=== PATIENT | female | born 1955 | race Caucasian/White ===

== ENCOUNTER 2021-11-12 12:13 | Inpatient (IN) ==
[2021-11-12] MEDS ORDERED: ONDANSETRON INJ 2 MG/ML 2 ML VIAL IV STA ×2 (12:25→15:48)
[2021-11-12] MEDS ORDERED: ACETAMINOPHEN 1,000 MG/100 ML VIAL IV STA (12:25)
[2021-11-12] MEDS ORDERED: MoRPHine SULFATE 4 MG/ML 1 ML CARP\\VIAL IV STA (12:25)
--- NOTE | 2021-11-12 12:29 | Emergency Department Note ---
History of Present Illness General Chief complaint: Abdominal Pain Stated complaint: AB PAIN, VOMITING Time Seen by Provider: 11/12/21 12:18 Source: patient Mode of arrival: ambulatory Limitations: no limitations History of Present Illness Provider complaint: abd pain, vomiting Onset (ago): day(s) 1 Relieved By: + none Exacerbated By: + eating and + movement Associated symptoms: + loss of appetite and + nausea/vomiting; no chest pain or no fever/chills Treatments prior to arrival: none This is a 66-year-old female presents emergency department complaining of abdominal pain, nausea and vomiting. Patient states while at a wedding yesterday she began noticing that the right side of her abdomen seem to be more prominent and swollen, and began to slowly become more uncomfortable. She state s overnight she became nauseated and vomited multiple times. She states the pain has been constant and continued to worsen with the vomiting. She denies fever or chills, denies diarrhea or change in bowel movements. Patient states she does have a prior history of an umbilical hernia and inguinal hernia repair. 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 She denies any recent change in urine or urinary habits. Pt seen during a time of high acuity and national emergency pandemic while wearing PPE. 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 Beliefs That Will Affect Care: None Current Living Situation: Spouse Other Information That Helps Us Care for You: No Feels Safe at Home: Yes Safety Concerns: Feels Safe At This Time Assistive Devices: None Review of Systems A total of 10 systems reviewed and were otherwise negative All systems reviewed & are unremarkable except as noted in HPI & below Physical Exam Vital Signs Vital Signs - 24 hr 11/12/21 12:20 11/12/21 14:20 11/12/21 15:59 Temperature 36.6 C Temperature Source Oral Pulse Rate 58 L Pulse Rate [Apical] 84 64 Pulse Rhythm [Apical] Regular Pulse Strength [Apical] Normal Respiratory Rate 17 17 16 Respiratory Effort / Characteristics Non-Labored Non-Labored Non-Labored Spontaneous Respiratory Depth Normal Respiratory Pattern Blood Pressure 136/78 Blood Pressure [Left Arm] 134/73 123/71 Blood Pressure [Right Arm] Blood Pressure Mean 97 Blood Pressure Mean [Left Arm] 93 88 Blood Pressure Mean [Right Arm] Blood Pressure Position [Left Arm] Lying Blood Pressure Position [Right Arm] Pulse Oximetry 100 97 96 Oxygen Delivery Method Room Air Room Air Room Air Sepsis Recent Fever Within 48 Hours No Sepsis New/Unexplained Change in Mental Status N/A Sepsis Action Taken by Nursing No Action Required 11/12/21 17:36 11/12/21 18:34 11/12/21 19:48 Temperature 36.1 C L Temperature Source Temporal Artery Scan Pulse Rate 68 Pulse Rate [Apical] 58 L 65 Pulse Rhythm [Apical] Regular Regular Pulse Strength [Apical] Normal Respiratory Rate 16 18 16 Respiratory Effort / Characteristics Non-Labored Non-Labored Spontaneous Respiratory Depth Normal Normal Respiratory Pattern Regular Blood Pressure 144/79 H Blood Pressure [Left Arm] 118/64 Blood Pressure [Right Arm] 130/68 Blood Pressure Mean Blood Pressure Mean [Left Arm] 82 Blood Pressure Mean [Right Arm] 88 Blood Pressure Position [Left Arm] Blood Pressure Position [Right Arm] Semi-fowlers Pulse Oximetry 100 97 96 Oxygen Delivery Method Room Air Room Air Room Air Sepsis Recent Fever Within 48 Hours Sepsis New/Unexplained Change in Mental Status Sepsis Action Taken by Nursing 11/12/21 19:55 11/12/21 20:05 11/12/21 20:15 Temperature Temperature Source Pulse Rate Pulse Rate [Apical] 58 L 66 54 L Pulse Rhythm [Apical] Regular Regular Regular Pulse Strength [Apical] Respiratory Rate 16 16 16 Respiratory Effort / Characteristics Non-Labored Spontaneous Non-Labored Spontaneous Non-Labored Spontaneous Respiratory Depth Normal Normal Normal Respiratory Pattern Regular Regular Regular Blood Pressure Blood Pressure [Left Arm] Blood Pressure [Right Arm] 131/70 132/65 124/64 Blood Pressure Mean Blood Pressure Mean [Left Arm] Blood Pressure Mean [Right Arm] 90 87 84 Blood Pressure Position [Left Arm] Blood Pressure Position [Right Arm] Semi-fowlers Semi-fowlers Semi-fowlers Pulse Oximetry 98 98 98 Oxygen Delivery Method Room Air Room Air Room Air Sepsis Recent Fever Within 48 Hours Sepsis New/Unexplained Change in Mental Status Sepsis Action Taken by Nursing GENERAL: alert, uncomfortable appearing, well nourished, moderate distress, non- toxic, sitting up holding emesis bag EYE EXAM: normal conjunctiva, PERRL and EOM's grossly intact OROPHARYNX: no exudate, no erythema, lips, buccal mucosa, and tongue normal and mucous membranes are moist NECK: supple, no nuchal rigidity, no adenopathy, non-tender LUNGS: Clear to auscultation. Normal chest wall mechanics, no w/r/r HEART: no murmurs, S1 normal and S2 normal ABDOMEN: abdomen soft, tenderness with palpation over the right mid abdomen, no palpable mass or hernia, normo-active bowel sounds, no rebound or guarding. Vertical midline incision noted to the lower abdomen which patient states is from prior removal of an ovarian tumor. BACK: Back is symmetrical on inspection and there is no deformity, no midline tenderness, no CVA tenderness. SKIN: no rashes and no bruising UPPER EXTREMITIES: upper extremities are grossly normal. FROM, nml pulses b/l. LOWER EXTREMITIES: No pitting edema. FROM, nml pulses b/l. NEURO EXAM: Normal sensorium, cranial nerves II-XII grossly intact, normal speech, no gross weakness of arms, no gross weakness of legs. Gross sensation intact. Course Course 170: Pt updated on CT results. 1724: Discussed with general surgery, Dr. Sam. He will be in to evaluate the patient. Repeat evaluation after additional pain medication revealed left inguinal hernia, firm, unable to be reduced. Administered Medications Discontinued Medications Bupivacaine HCl (Bupivacaine 0.5 % 5 Mg/1 Ml Mpf 30ml Vial) Confirm Administered Dose 30 ml .ROUTE .STK-MED ONE Stop: 11/12/21 18:21 Last Admin: 11/12/21 19:38 Dose: 30 ml Documented by: [id number] Epinephrine HCl (Epinephrine Inj 1 Mg/Ml Amp) Confirm Administered Dose 1 mg .ROUTE .STK-MED ONE Stop: 11/12/21 18:21 Last Admin: 11/12/21 19:40 Dose: 0.15 mg Documented by: [id number] Acetaminophen (Ofirmev) 1,000 mg in 100 mls @ 400 mls/hr IV NOW STA Stop: 11/12/21 12:39 Last Infusion: 11/12/21 12:57 Dose: 0 mls/hr Documented by: [id number] Admin: 11/12/21 12:42 Dose: 400 mls/hr Documented by: [id number] Cefazolin Sodium (Ancef 1000mg) 1,000 mg in 7.5 mls @ 2.5 mls/min IV PREOP ONE Stop: 11/12/21 18:37 Last Admin: 11/12/21 19:09 Dose: 2.5 mls/min Documented by: [id number] Lactated Ringer's (Lr) 1,000 mls @ 75 mls/hr IV .[id number] ARLENE Stop: 12/12/21 20:57 Last Infusion: 11/13/21 12:43 Dose: 0 mls/hr Documented by: [id number] Admin: 11/13/21 11:44 Dose: 75 mls/hr Documented by: [id number] Infusion: 11/13/21 10:48 Dose: 75 mls/hr Documented by: [id number] Admin: 11/12/21 21:28 Dose: 75 mls/hr Documented by: [id number] Cefazolin Sodium (Ancef 2000mg) 2,000 mg in 15 mls @ 3.75 mls/min IV Q8H ARLENE Stop: 11/23/21 01:59 Last Admin: 11/13/21 10:26 Dose: 3.75 mls/min Documented by: [id number] Admin: 11/13/21 02:31 Dose: 3.75 mls/min Documented by: [id number] Morphine Sulfate (Morphine Sulfate 4 Mg/Ml 1 Ml Carp\Vial) 4 mg IV NOW STA Stop: 11/12/21 12:26 Last Admin: 11/12/21 12:41 Dose: 4 mg Documented by: [id number] Morphine Sulfate (Morphine Sulfate 2 Mg/Ml Carp) 2 mg IV NOW STA Stop: 11/12/21 15:49 Last Admin: 11/12/21 15:58 Dose: 2 mg Documented by: [id number] Ondansetron HCl (Ondansetron Inj 2 Mg/Ml 2 Ml Vial) 4 mg IV NOW STA Stop: 11/12/21 12:26 Last Admin: 11/12/21 12:41 Dose: 4 mg Documented by: [id number] Ondansetron HCl (Ondansetron Inj 2 Mg/Ml 2 Ml Vial) 4 mg IV NOW STA Stop: 11/12/21 15:49 Last Admin: 11/12/21 15:58 Dose: 4 mg Documented by: [id number] Oxycodone/Acetaminophen (Oxycodone/Acetaminophen 5mg/325mg Tab) 1 tab PO Q4H PRN PRN Reason: MODERATE Pain (4,5,6) & Pre PT Stop: 11/26/21 20:57 Last Admin: 11/13/21 15:23 Dose: 1 tab Documented by: [id number] Admin: 11/13/21 15:20 Dose: 1 tab Documented by: [id number] Admin: 11/12/21 21:40 Dose: 1 tab Documented by: [id number] Oxycodone/Acetaminophen (Oxycodone/Acetaminophen 5mg/325mg Tab) 2 tab PO Q4H PRN PRN Reason: SEVERE Pain (7,8,9,10) Stop: 11/26/21 20:57 Last Admin: 11/13/21 02:41 Dose: 2 tab Documented by: [id number] Medical Decision Making Differential Diagnosis Differential diagnoses includes but is not limited to gastritis, peptic ulcer disease, GERD, gallbladder disease, pancreatitis, small bowel obstruction, acute coronary syndrome, pericarditis, ischemic bowel, irritable bowel disease, irritable bowel syndrome, appendicitis, diverticulitis, malignancy, hernia, u rinary tract infection, torsion, [/ectopic (if female)], perforation, trauma, infectious. Medical Records Attestation: I reviewed the patient's medical records. Home Medications Current Medication List: was personally reviewed by me Laboratory Data Attestation: I reviewed the patient's lab results. Result diagrams: 11/12/21 12:20 11/12/21 12:20 Lab Results 11/12/21 11/12/21 11/12/21 Range/Units 12:20 12:20 12:46 WBC 12.47 H (4.8-10.8) K/uL RBC 4.36 (4.2-5.4) M/uL Hgb 13.6 (12.0-16.0) g/dL Hct 40.1 (37-47) % MCV 92.0 (80-100) fL MCH 31.2 (25-34) pg MCHC 33.9 (32-36) g/dL RDW Std Deviation 45.7 (36.4-46.3) fL RDW Coeff of Darron 13.6 (11.5-14.5) % Plt Count 339 (130-400) K/uL MPV 10.5 H (7.4-10.4) fL Immature Gran % (Auto) 0.2 % Neut % (Auto) 86.1 % Lymph % (Auto) 9.6 % [place] % (Auto) 4.1 % Eos % (Auto) 0.0 % Baso % (Auto) 0.0 % Neut # (Auto) 10.73 H (1.4-6.5) K/uL Lymph # (Auto) 1.20 (1.2-3.4) K/uL [place] # (Auto) 0.51 (0.11-0.59) K/uL Eos # (Auto) 0.00 (0-0.5) K/uL Baso # (Auto) 0.00 (0-0.2) K/uL Immature Gran # (Auto) 0.03 H (0.00-0.02) K/uL Sodium 135 L (136-145) mmol/L Potassium 3.7 (3.5-5.1) mmol/L Chloride 99 (98-107) mmol/L Carbon Dioxide 28 (21-32) mmol/L Anion Gap 8 (3-11) BUN 14 (6-23) mg/dl Creatinine 0.65 (0.6-1.2) mg/dl Est Cr Clr Drug Dosing 86.7 ml/min Est GFR ( Amer) 108.7 ml/min Est GFR (Non-Af Amer) 93.8 ml/min BUN/Creatinine Ratio 21.5 H (10-20) Glucose 135 H (70-99(Fasting)) mg/dl Lactate 0.9 (0.4-2.0) mmol/L Calcium 10.1 (8.5-10.1) mg/dl Magnesium 1.9 (1.7-2.4) mg/dl Total Bilirubin 1.0 (0.2-1.0) mg/dl AST 16 (13-39) U/L ALT 8 (7-52) U/L Alkaline Phosphatase 84 (34-104) U/L Total Protein 8.2 (6.0-8.3) gm/dl Albumin 4.5 (3.4-5.0) gm/dl Globulin 3.7 (2.5-4.0) gm/dl Albumin/Globulin Ratio 1.2 (0.9-2) Lipase 27 (11-82) U/L Urine Color Urine Appearance (Clear) Urine pH (4.5-7.5) Ur Specific [place] (1.000-1.030) Urine Protein (Negative) Urine Glucose (UA) (Negative) Urine Ketones (Negative) Urine Blood (Negative) Urine Nitrite (Negative) Urine Bilirubin (Negative) Urine Urobilinogen (Negative) Ur Leukocyte Esterase (Negative) Urine WBC (Auto) (0-5) /hpf Urine RBC (Auto) (0-4) /hpf U Hyaline Cast (Auto) (0-5) /lpf U Epithel Cells (Auto) (0-5) /lpf Urine Bacteria (Auto) (Negative) Ur Renal Epithelial Cell (0-5) /lpf SARS-CoV-2, RNA, NAAT (NEGATIVE) 11/12/21 11/12/21 Range/Units 15:10 17:30 WBC (4.8-10.8) K/uL RBC (4.2-5.4) M/uL Hgb (12.0-16.0) g/dL Hct (37-47) % MCV (80-100) fL MCH (25-34) pg MCHC (32-36) g/dL RDW Std Deviation (36.4-46.3) fL RDW Coeff of Darron (11.5-14.5) % Plt Count (130-400) K/uL MPV (7.4-10.4) fL Immature Gran % (Auto) % Neut % (Auto) % Lymph % (Auto) % [place] % (Auto) % Eos % (Auto) % Baso % (Auto) % Neut # (Auto) (1.4-6.5) K/uL Lymph # (Auto) (1.2-3.4) K/uL [place] # (Auto) (0.11-0.59) K/uL Eos # (Auto) (0-0.5) K/uL Baso # (Auto) (0-0.2) K/uL Immature Gran # (Auto) (0.00-0.02) K/uL Sodium (136-145) mmol/L Potassium (3.5-5.1) mmol/L Chloride (98-107) mmol/L Carbon Dioxide (21-32) mmol/L Anion Gap (3-11) BUN (6-23) mg/dl Creatinine (0.6-1.2) mg/dl Est Cr Clr Drug Dosing ml/min Est GFR ( Amer) ml/min Est GFR (Non-Af Amer) ml/min BUN/Creatinine Ratio (10-20) Glucose (70-99(Fasting)) mg/dl Lactate (0.4-2.0) mmol/L Calcium (8.5-10.1) mg/dl Magnesium (1.7-2.4) mg/dl Total Bilirubin (0.2-1.0) mg/dl AST (13-39) U/L ALT (7-52) U/L Alkaline Phosphatase (34-104) U/L Total Protein (6.0-8.3) gm/dl Albumin (3.4-5.0) gm/dl Globulin (2.5-4.0) gm/dl Albumin/Globulin Ratio (0.9-2) Lipase (11-82) U/L Urine Color Dark Yellow Urine Appearance Clear (Clear) Urine pH 6.5 (4.5-7.5) Ur Specific [place] 1.044 H (1.000-1.030) Urine Protein 1+ H (Negative) Urine Glucose (UA) Negative (Negative) Urine Ketones 1+ H (Negative) Urine Blood Negative (Negative) Urine Nitrite Negative (Negative) Urine Bilirubin 1+ H (Negative) Urine Urobilinogen Negative (Negative) Ur Leukocyte Esterase Negative (Negative) Urine WBC (Auto) 1-5 (0-5) /hpf Urine RBC (Auto) 5-10 H (0-4) /hpf U Hyaline Cast (Auto) 5-10 H (0-5) /lpf U Epithel Cells (Auto) >30 H (0-5) /lpf Urine Bacteria (Auto) Negative (Negative) Ur Renal Epithelial Cell 0-5 (0-5) /lpf SARS-CoV-2, RNA, NAAT NEGATIVE (NEGATIVE) Imaging Data Radiologist's Impression: Abdomen/Pelvis CT 11/12/21 13:03 CT abd pelvis oral con only CLINICAL HISTORY: right abd pain/vomiting/hernia COMPARISON STUDY: No previous studies for comparison. CT DOSE: 449.80 mGy.cm TECHNIQUE: Standard CT of the Abdomen and Pelvis was performed without IV contrast. The patient did not receive oral contrast. A dose lowering technique was utilized adhering to the principles of ALARA. FINDINGS: Lung base: The lung bases are clear. Abdominal cavity and bowel: There is a left inguinal hernia containing multiple loops of small bowel. There is incarceration of the hernia with moderate dilatation of the small bowel loops proximal to the hernia. Edematous changes are present at this site. Findings represent presence of a bowel obstruction. The small bowel loops distal to the hernia are decompressed. Fecal material is present within the colon. There is a normal appendix in the right lower quadrant. There are no other inflammatory changes or free air. The stomach is distended with oral contrast. Only minimal oral contrast has emptied the stomach related to the obstruction present. There is an anterior abdominal wall ventral hernia containing mesenteric fat. No bowel loop herniation is identified. Liver: The liver is homogeneous in attenuation on these limited noncontrast images.. Spleen: The spleen is homogeneous in attenuation on these limited noncontrast images. Pancreas: The pancreas is homogeneous in attenuation on these limited noncontrast images. Gall Bladder: The gallbladder is well distended with no evidence for cholelithiasis, wall thickening or pericholecystic edema.. Adrenal glands: The adrenal glands are normal in size and attenuation on these limited noncontrast images. Kidneys: The kidneys are homogeneous in attenuation on these limited noncontrast images. There is no evidence for gross renal mass, calculus or hydronephrosis bilaterally. Bladder: There is no evidence for focal bladder wall thickening, calculus or diverticulum. : There is no evidence for pelvic mass or adenopathy. Vasculature: There is no evidence for focal aneurysmal dilatation of the abdominal aorta. Osseous structures: There is no acute osseous pathology. IMPRESSION: 1. Incarcerated hernia within the left inguinal canal producing proximal small bowel obstruction. Edematous changes are present at the site of the hernia. 2. No other evidence for acute intra-abdominal or pelvic abnormality on these limited noncontrast images. 3. Additional nonacute findings are delineated above ACT 112: Negative or not required by law. Electronically signed by: Serg Macdonald M.D. 11/12/2021 4:48 PM ECG Data Attestation: I personally reviewed and interpreted this ECG as follows: Indication: + abdominal pain Rate (beats per minute): 57 Rhythm: + sinus bradycardia ECG Intervals/blocks: + Normal QRS and + Normal QT ECG [place]: + Normal ECG ST segments: + Nonspecific ST abnormalities MDM Narrative An order was placed for continuous cardiac monitoring. The monitor shows a rate of _72__ with _normal sinus__ rhythm. This is a 66 yo female who presents with abdominal pain. Patient felt pain worse on right and felt she was swollen on the right abdomen, however she had pain with palpation over almost her entire abdomen. Patient afebrile but ill appearing with nausea and vomiting. Patient given several doses of pain and nausea medication and started on IV fluids. Labs sent. Mild leukocytosis however lactic acid negative. CT with incarcerated inguinal hernia on left. On repeat exam, this was palpable and unable to be reduced. Case discussed with contact lens flashing puncher gen surg who evaluated the patient in the ER. Patient taken to the OR. VS stable throughout. Impression & Plan Abdominal pain, Incarcerated left inguinal hernia, Small bowel obstruction, Nausea & vomiting Discharge Plan Visit Data Chief Complaint: Abdominal Pain Stated Complaint: AB PAIN, VOMITING Discharge Problem: Abdominal pain, Incarcerated left inguinal hernia, Small bowel obstruction, Nausea & vomiting Patient Disposition: Admitted As Inpatient Discharge Instructions Interventions: ED Discharge Assessment Last Done: 11/12/21 18:34 Discharge Problem: Abdominal pain Qualifiers: Abdominal location: generalized Qualified Code(s): R10.84 - Generalized abdominal pain Nausea & vomiting Qualifiers: Vomiting type: unspecified Qualified Code(s): R11.2 - Nausea with vomiting, unspecified
[2021-11-12 12:40] LABS: Hematocrit (blood only) 40.1 % (37-47); Hemoglobin 13.6 g/dL (12.0-16.0); Immature Granulocytes # (auto) 0.03 K/uL (0.00-0.02); Immature Granulocytes % (auto) 0.2 %; Lymphocytes % (auto) 9.6 %; Mean Corpuscular Hemoglobin 31.2 pg (25-34); Mean Corpuscular Hgb Conc 33.9 g/dL (32-36); Mean Platelet Volume 10.5 fL (7.4-10.4); Monocytes # (auto) 0.51 K/uL (0.11-0.59); Monocytes % (auto) 4.1 %; Neutrophils # (auto) 10.73 K/uL (1.4-6.5); Neutrophils % (auto) 86.1 %; Platelet Count 339 K/uL (130-400); RDW Coefficient of Variation 13.6 % (11.5-14.5); RDW Standard Deviation 45.7 fL (36.4-46.3); Red Blood Count 4.36 M/uL (4.2-5.4); White Blood Count 12.47 K/uL (4.8-10.8)
[2021-11-12 12:59] LABS: Albumin Globulin Ratio 1.2 (0.9-2); Albumin Level 4.5 gm/dl (3.4-5.0); BUN Creatinine Ratio 21.5 (10-20); Calcium 10.1 mg/dl (8.5-10.1); Creatinine Clr Calc Pharmacy 86.7 ml/min; Est GFR (African American) 108.7 ml/min; Est GFR (Non-African American) 93.8 ml/min; Globulin 3.7 gm/dl (2.5-4.0); Magnesium 1.9 mg/dl (1.7-2.4); Potassium 3.7 mmol/L (3.5-5.1); Total Protein 8.2 gm/dl (6.0-8.3)
[2021-11-12 15:32] LABS: Appearance Urine Clear (Clear); Bacteria Urine Automated Negative (Negative); Blood Urine Negative (Negative); Color Urine Dark Yellow; Epithelial Cell Urine Auto >30 /lpf (0-5); Glucose Urine UA Negative (Negative); Ketones Urine 1+ (Negative); Leukocyte Esterase Urine Negative (Negative); Nitrite Urine Negative (Negative); Protein Urine 1+ (Negative); Specific Gravity Urine 1.044 (1.000-1.030); Urobilinogen Urine Negative (Negative); pH Urine 6.5 (4.5-7.5)
[2021-11-12 15:41] LABS: Bilirubin Urine 1+ (Negative)
[2021-11-12] MEDS ORDERED: MoRPHine SULFATE 2 MG/ML CARP IV STA (15:48)
[2021-11-12 15:52] LABS: Renal Epithelial Cells Urine 0-5 /lpf (0-5)
--- NOTE | 2021-11-12 16:51 | CT Scan Report ---
CT abd pelvis oral con only CLINICAL HISTORY: right abd pain/vomiting/hernia COMPARISON STUDY: No previous studies for comparison. CT DOSE: 449.80 mGy.cm TECHNIQUE: Standard CT of the Abdomen and Pelvis was performed without IV contrast. The patient did not receive oral contrast. A dose lowering technique was utilized adhering to the principles of [place]. FINDINGS: Lung base: The lung bases are clear. Abdominal cavity and bowel: There is a left inguinal hernia containing multiple loops of small bowel. There is incarceration of the hernia with moderate dilatation of the small bowel loops proximal to t he hernia. Edematous changes are present at this site. Findings represent presence of a bowel obstruc tion. The small bowel loops distal to the hernia are decompressed. Fecal material is present within the col on. There is a normal appendix in the right lower quadrant. There are no other inflammatory changes o r free air. The stomach is distended with oral contrast. Only minimal oral contrast has emptied the stomach relat ed to the obstruction present. There is an anterior abdominal wall ventral hernia containing mesenteric fat. No bowel loop herniatio n is identified. Liver: The liver is homogeneous in attenuation on these limited noncontrast images.. Spleen: The spleen is homogeneous in attenuation on these limited noncontrast images. Pancreas: The pancreas is homogeneous in attenuation on these limited noncontrast images. Gall Bladder: The gallbladder is well distended with no evidence for cholelithiasis, wall thickening or pericholecystic edema.. Adrenal glands: The adrenal glands are normal in size and attenuation on these limited noncontrast im ages. Kidneys: The kidneys are homogeneous in attenuation on these limited noncontrast images. There is no evidence for gross renal mass, calculus or hydronephrosis bilaterally. Bladder: There is no evidence for focal bladder wall thickening, calculus or diverticulum. : There is no evidence for pelvic mass or adenopathy. Vasculature: There is no evidence for focal aneurysmal dilatation of the abdominal aorta. Osseous structures: There is no acute osseous pathology. IMPRESSION: 1. Incarcerated hernia within the left inguinal canal producing proximal small bowel obstruction. José Manuel matous changes are present at the site of the hernia. 2. No other evidence for acute intra-abdominal or pelvic abnormality on these limited noncontrast eun ges. 3. Additional nonacute findings are delineated above ACT 112: Negative or not required by law. Electronically signed by: Serg Macdonald M.D. 11/12/2021 4:48 PM
--- NOTE | 2021-11-12 17:30 | Electrocardiogram Report ---
Test Reason : Blood Pressure : / mmHG Vent. Rate : 057 BPM Atrial Rate : 057 BPM P-R Int : 190 ms QRS Dur : 082 ms QT Int : 438 ms P-R-T Axes : 065 -20 023 degrees QTc Int : 426 ms Sinus bradycardia Low voltage QRS Inferior infarct , age undetermined Abnormal ECG No previous ECGs available Confirmed by Federico Shell ([id number]) on 11/12/2021 5:30:14 PM Referred By: REFERRED SELF Confirmed By:Solo Shell
[2021-11-12] MEDS ORDERED: MIDAZOLAM HCL 1 MG/ML 2ML VIAL ONE (17:54)
[2021-11-12] MEDS ORDERED: fentaNYL citrate 100 MCG/2 ML VIAL ONE (17:54)
[2021-11-12] MEDS ORDERED: ePHEDrine sulfate 50 MG/ML AMP IV PRN (18:03)
[2021-11-12] MEDS ORDERED: ONDANSETRON INJ 2 MG/ML 2 ML VIAL IV PRN ×2 (18:03→20:58)
[2021-11-12] MEDS ORDERED: fentaNYL citrate 100 MCG/2 ML VIAL IV PRN (18:03)
[2021-11-12] MEDS ORDERED: ATROPINE SULFATE 0.1 MG/ML 10ML SYR IV PRN (18:03)
--- NOTE | 2021-11-12 18:03 | Anesthesiology Consultation ---
Date of Service November 12, 2021 Assessment & Plan (1) Encounter for pre-operative examination: Chart Review Chart Review: Acceptable Risk for Surgery and Patient NOT seen in Pre Admission Testing Consults Requested none History Surgery Inguinal Herna Repair Height/Weight Height: 5 ft 3 in Weight: 78.4 kg Past Medical History Medical History Rheumatoid arthritis Social History Smoking Status: Never smoker Physical Exam Vital Signs Last Vital Signs Temp 97.9 F 11/12/21 12:20 Pulse 58 L 11/12/21 17:36 Resp 16 11/12/21 17:36 BP 118/64 11/12/21 17:36 Pulse Ox 100 11/12/21 17:36 Testing Laboratory Results 11/12/21 12:20 11/12/21 12:20 Urine Color Dark Yellow 11/12/21 15:10 Urine Appearance Clear (Clear) 11/12/21 15:10 Urine pH 6.5 (4.5-7.5) 11/12/21 15:10 Ur Specific [place] 1.044 (1.000-1.030) H 11/12/21 15:10 Urine Protein 1+ (Negative) H 11/12/21 15:10 Urine Glucose (UA) Negative (Negative) 11/12/21 15:10 Urine Ketones 1+ (Negative) H 11/12/21 15:10 Urine Nitrite Negative (Negative) 11/12/21 15:10 Ur Leukocyte Esterase Negative (Negative) 11/12/21 15:10 Urine WBC (Auto) 1-5 /hpf (0-5) 11/12/21 15:10 Urine RBC (Auto) 5-10 /hpf (0-4) H 11/12/21 15:10 U Hyaline Cast (Auto) 5-10 /lpf (0-5) H 11/12/21 15:10 U Epithel Cells (Auto) >30 /lpf (0-5) H 11/12/21 15:10 Urine Bacteria (Auto) Negative (Negative) 11/12/21 15:10 Electrocardiogram Date: 11/12/21 Findings: + NSR @ (Sinus bradycardia) inferior infarct age indeterminate
[2021-11-12] MEDS ORDERED: EPINEPHrine INJ 1 MG/ML AMP ONE (18:20)
[2021-11-12] MEDS ORDERED: BUPIVACAINE 0.5 % 5 MG/1 ML MPF 30ML VIAL ONE (18:20)
--- NOTE | 2021-11-12 18:32 | History & Physical Report ---
Date of Service November 12, 2021 Assessment & Plan (1) Rheumatoid arthritis: Plan: -continue meds Present on Admission?: Yes (2) Incarcerated left inguinal hernia: Plan: -IVF -IV abs -to OR for left groin exploration Present on Admission?: Yes History of Present Illness Primary Care Provider: NO PCP This is a 66-year-old female with abdominal pain, nausea and vomiting and left groin pain. The discomfort began last night with some more strenuous activity and slowly become more uncomfortable. She states overnight she became nauseated and vomited multiple times. She states the pain has been constant and continued to worsen with the vomiting. She denies fever or chills, denies diarrhea or change in bowel movements. Patient states she does have a prior history of an umbilical hernia and inguinal hernia repair. 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 She has a known small reducible periumbilical ventral incisional hernia which is asymptomatic. She denies any recent change in urine or urinary habits. Past Med/Surg History Medical History Rheumatoid arthritis Social History Smoking Status: Never smoker Feels Safe at Home: Yes Review of Systems + anorexia; no fever, no chills and no fatigue no problem reported no problem reported no cough and no dyspnea no chest pain + abdominal pain, + nausea, + vomiting and + change in bowel habits no dysuria no back pain no rash and no lesions no localized weakness and no generalized weakness no behavioral changes no easy bleeding and no easy bruising Physical Exam Constitutional: WD/WN, vitals as above + uncomfortable Eyes: PERRL, conjunctivae normal, anicteric sclerae ENMT: external ear and nose normal, oropharynx normal Neck: trachea midline Respiratory: normal respiratory effort, lungs clear to auscultation Cardiovascular: RRR, no murmur, no edema Gastrointestinal (Abdomen): Inspection/Auscultation: abdomen normal to inspection, normal bowel sounds, + visible herniation (small periumbilical reucible incisional hernia) and + abdominal surgical scar; abdomen not distended Percussion/Palpation: abdomen soft; abdomen nontender and no guarding Musculoskeletal: Head/Neck/Chest: normocephalic and head atraumatic Skin: no rashes, warm and dry Genitourinary: + abnormal external appearance (incarcerated left inguinal hernia, not reducible, minimal erythema) Lymphatic: no cervical or axillary lymphadenopathy ASA Classification ASA ASA2E Results & Data ([facility]) Vital Signs (Past 12 Hours) Vital Signs Temp Pulse Pulse Resp BP BP Pulse Ox 11/12/21 17:36 58 L 16 118/64 100 11/12/21 15:59 64 16 123/71 96 11/12/21 14:20 84 17 134/73 97 11/12/21 12:20 36.6 C 58 L 17 136/[address] abd pelvis oral con only CLINICAL HISTORY: right abd pain/vomiting/hernia COMPARISON STUDY: No previous studies for comparison. CT DOSE: 449.80 mGy.cm TECHNIQUE: Standard CT of the Abdomen and Pelvis was performed without IV contrast. The patient did not receive oral contrast. A dose lowering technique was utilized adhering to the principles of ALARA. FINDINGS: Lung base: The lung bases are clear. Abdominal cavity and bowel: There is a left inguinal hernia containing multiple loops of small bowel. There is incarceration of the hernia with moderate dilatation of the small bowel loops proximal to the hernia. Edematous changes are present at this site. Findings represent presence of a bowel obstruction. The small bowel loops distal to the hernia are decompressed. Fecal material is present within the colon. There is a normal appendix in the right lower quadrant. There are no other inflammatory changes or free air. The stomach is distended with oral contrast. Only minimal oral contrast has emptied the stomach related to the obstruction present. There is an anterior abdominal wall ventral hernia containing mesenteric fat. No bowel loop herniation is identified. Liver: The liver is homogeneous in attenuation on these limited noncontrast images.. Spleen: The spleen is homogeneous in attenuation on these limited noncontrast images. Pancreas: The pancreas is homogeneous in attenuation on these limited noncontrast images. Gall Bladder: The gallbladder is well distended with no evidence for cholelithiasis, wall thickening or pericholecystic edema.. Adrenal glands: The adrenal glands are normal in size and attenuation on these limited noncontrast images. Kidneys: The kidneys are homogeneous in attenuation on these limited noncontrast images. There is no evidence for gross renal mass, calculus or hydronephrosis bilaterally. Bladder: There is no evidence for focal bladder wall thickening, calculus or diverticulum. : There is no evidence for pelvic mass or adenopathy. Vasculature: There is no evidence for focal aneurysmal dilatation of the abdominal aorta. Osseous structures: There is no acute osseous pathology. IMPRESSION: 1. Incarcerated hernia within the left inguinal canal producing proximal small bowel obstruction. Edematous changes are present at the site of the hernia. 2. No other evidence for acute intra-abdominal or pelvic abnormality on these limited noncontrast images. 3. Additional nonacute findings are delineated above Code Status & VTE Plan Code Status Full Code VTE Prophylaxis Plan VTE Prophylaxis will be ordered: Yes
[2021-11-12] MEDS ORDERED: ceFAZolin 1000MG 1,000 MG/7.5 ML SYR IV ONE (18:35)
[2021-11-12] MEDS ORDERED: SUCCINYLCHOLINE CHLORIDE 20 MG/ML 10 ML VIAL IV ONE (19:16)
[2021-11-12] MEDS ORDERED: LIDOCAINE 2% 2 ML VIAL/AMP(20MG/ML) INFIL ONE (19:16)
[2021-11-12] MEDS ORDERED: PROPOFOL IV EMULSION 10 MG/ML 20 ML VIAL IV ONE (19:16)
[2021-11-12] MEDS ORDERED: DEXAMETHASONE SOD INJ 4 MG/ML VIAL ONE (19:16)
[2021-11-12] MEDS ORDERED: SUCCINYLCHOLINE 100MG/5ML SYR IV ONE (19:16)
[2021-11-12] MEDS ORDERED: ROCURONIUM BROMIDE 10 MG/ML 5 ML VIAL IV ONE (19:17)
[2021-11-12] MEDS ORDERED: NEOSTIGMINE METHYLSULFATE 1 MG/ML 10ML VIAL ONE (19:35)
[2021-11-12] MEDS ORDERED: GLYCOPYRROLATE 0.2 MG/ML VIAL ONE (19:35)
--- NOTE | 2021-11-12 19:38 | Post Operative Brief Note ---
Immediate Post Op Note v1 Date of Surgery November 12, 2021 Pre & Post Diagnosis Operation Date: 11/12/21 18:45 Pre-Op Diagnosis: Left incarcerated inguinal hernia Post-Op Diagnosis: Left incarcerated inguinal hernia I identified the patient and participated in the time-out.: Yes Procedure Operation Date: 11/12/21 18:45 Actual Procedures p Left Incarcerated Inguinal Hernia Repair(Left) - Anthony Sam MD Surgeon Anthony Sam MD Public Housing Manager none Estimated Blood Loss 10 Findings See Below Incarcerated left femoral hernia
--- NOTE | 2021-11-12 20:10 | Anesthesiology Progress Note ---
Date of Service November 12, 2021 Anesthesia Post Procedure Vital Signs Vital Signs: Temp Pulse Pulse Resp BP BP BP 11/12/21 20:05 66 16 132/65 11/12/21 19:55 58 L 16 131/70 11/12/21 19:48 36.1 C L 65 16 130/68 11/12/21 18:34 68 18 144/79 H 11/12/21 17:36 58 L 16 118/64 11/12/21 15:59 64 16 123/71 11/12/21 14:20 84 17 134/73 11/12/21 12:20 36.6 C 58 L 17 136/78 Pulse Ox 11/12/21 20:05 98 11/12/21 19:55 98 11/12/21 19:48 96 11/12/21 18:34 97 11/12/21 17:36 100 11/12/21 15:59 96 11/12/21 14:20 97 11/12/21 12:20 100 Pain Intensity Right Lower Abdomen: Pain Intensity: 2 Transfer of Care Handoff Completed per policy Notes Mental Status: alert / awake / arousable Patient Amnestic to Procedure: Yes Nausea / Vomiting: adequately controlled Pain: adequately controlled Airway Patency, RR, SpO2: stable & adequate BP & HR: stable & adequate Hydration State: stable & adequate Anesthetic Complications: no major complications apparent and Pt Satisfied with anesthetic care
[2021-11-12] MEDS ORDERED: MoRPHine SULFATE 4 MG/ML 1 ML CARP\\VIAL IV PRN (20:58)
[2021-11-12] MEDS ORDERED: CALCIUM CARBONATE 500 MG CHEWABLE TAB PO PRN (20:58)
[2021-11-12] MEDS ORDERED: MoRPHine SULFATE 2 MG/ML CARP IV PRN (20:58)
[2021-11-12] MEDS ORDERED: oxyCODONE/ACETAMINOPHEN 5mg/325mg TAB PO PRN (20:58)
[2021-11-12] MEDS ORDERED: ALUMINUM/MAGNESIUM SUSP 30 ML UDC PO PRN (20:58)
[2021-11-12] MEDS: LACTATED RINGER'S 1,000 ML IV SCH (21:28)
[2021-11-12] MEDS: oxyCODONE/ACETAMINOPHEN 5mg/325mg TAB PO PRN (21:40)
[2021-11-13] MEDS: ceFAZolin 2000MG 2,000 MG/15 ML SYR IV SCH ×2 (02:31→10:26)
--- NOTE | 2021-11-13 06:58 | Operative Report (OR) ---
DATE OF PROCEDURE: 11/12/2021. PREOPERATIVE DIAGNOSIS: Incarcerated left groin hernia with bowel causing obstruction. POSTOPERATIVE DIAGNOSIS: Incarcerated left femoral hernia with viable bowel. PROCEDURE PERFORMED: Left groin exploration with repair of left femoral hernia with mesh plug. SURGEON: Anthony aSm MD CHECKING CLERK: None. ANESTHESIA: General endotracheal with 0.5% Marcaine with epinephrine local. ESTIMATED BLOOD LOSS: 10 mL DRAINS: None. COMPLICATIONS: None. SPECIMEN: Hernia sac sent for pathologic evaluation. INDICATIONS: This is a 66-year-old female who came in with acute left groin pain with nausea and vom iting. She began to have some discomfort last night. This worsened. She came in today, had an eval uation and had CT scan which showed an incarcerated left groin hernia with small bowel knuckle causin g obstruction. I talked to her in detail about this and recommended a left groin exploration and rep air. She understands this and the risks. DESCRIPTION OF PROCEDURE: The patient was taken to the OR and underwent excellent general endotrache al anesthesia. The abdomen was prepped and draped in a normal sterile fashion. A transverse left gr oin incision was made along the lines of Zoe's. Dissection was taken down to identify Annette's fa scia. Hemostasis was achieved with cautery down to the fascia of the external oblique. This was fol lowed medially. The round ligament was normal with no sign of hernia. There was an obvious left fem oral hernia. The sac was erythematous. This was dissected free and entered into. There was some tu rbid fluid and a small knuckle of bowel was reduced, which was viable. The hernia sac was then ligat ed and because of the size, a pursestring suture was used to close the peritoneum. Once this was martir sed, a large plug was placed in the hole and this was secured to the inguinal ligament and tissue joi rounding the femoral canal. The plug was well placed and secured. Once this was done, a field block was created with local. Local was also used to anesthetize the skin. The plug was used because of the size of the hole. The Annette's fascia was then closed using a running Vicryl suture. Skin was c losed with delano. Sterile dressing was applied. She tolerated the procedure without any complicat ions. She will be sent to the postoperative recovery for a period of observation and then will be dis charged to her room when she meets criteria. Job ID: [id number]
[2021-11-13] MEDS: LACTATED RINGER'S 1,000 ML IV SCH (11:44)
--- NOTE | 2021-11-13 12:50 | Discharge Summary ---
Date of Service November 13, 2021 Admission HPI Per Admitting Provider This is a 66-year-old female with abdominal pain, nausea and vomiting and left groin pain. The discomfort began last night with some more strenuous activity and slowly become more uncomfortable. She states overnight she became nauseated and vomited multiple times. She states the pain has been constant and continued to worsen with the vomiting. She denies fever or chills, denies diarrhea or change in bowel movements. Patient states she does have a prior history of an umbilical hernia and inguinal hernia repair. 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 She has a known small reducible periumbilical ventral incisional hernia which is asymptomatic. She denies any recent change in urine or urinary habits. Principal Diagnosis Incarcerated left femoral hernia Discharge Exam Constitutional WD/WN, vitals as above no acute distress and not ill appearing Neck normal visual inspection and trachea midline Respiratory normal respiratory effort; no respiratory distress, no labored breathing and no retractions Gastrointestinal (Abdomen) Inspection/Auscultation: abdomen normal to inspection and + abdominal surgical incision (Clean, dry, intact with delano); abdomen not distended Percussion/Palpation: + abdomen tender (At left groin incision) and abdomen soft; no guarding and abdomen not rigid Skin no rashes, warm and dry Psychiatric A+Ox3, euthymic affect Discharge Data Procedures Performed Operation Date: 11/12/21 18:45 Actual Procedures p Left Incarcerated Inguinal Hernia Repair(Left) - Anthony Sam MD Ordered Studies 11/12/21 13:03 CT abd pelvis oral con only Stat Hospital Course (1) Incarcerated left inguinal hernia: Patient was taken to the operating room for open left groin exploration was found to have an incarcerated left femoral hernia with a knuckle of small bowel. Small bowel was able to be reduced and was viable. She did not require small bowel resection. Hernia was repaired with mesh plug. Patient tolerated procedure well and was transferred to recovery and then to medical/surgical floor for postoperative care her diet was advanced to clear liquids. Activity as tolerated. IV fluids, IV pain medication as needed as well as oral Percocet as needed, IV Zofran as needed for nausea were also ordered. Patient was evaluated on postop day #1. Vital signs stable, afebrile. Pain was controlled with oral pain medication. She was tolerating clear liquid diet. No nausea no vomiting. Preoperative pain have resolved. She is passing gas. Patient's diet was advanced to regular diet in which she tolerated and patient was discharged home in the afternoon on postop day #1 in stable condition (2) Rheumatoid arthritis: Total Time Total Time Spent Total Time Spent (In Minutes): 90 Total Time Includes: Examination of the Patient, Discharge Planning and Medication Reconciliation Discharge Plan Discharge Items Patient Disposition: Home - Self-Care Reason For Visit: INCARCERATED LEFT FEMORAL HERNIA Discharge Diagnosis: Incarcerated left femoral hernia Activity: Per Instructions section Non-emergency contact: Primary Care Provider and Surgeon Call non-emergency contact if: you have any medication questions, your pain is not controlled, your pain is worsening, your pain is concerning for you, you have a fever, your temperature is above 101, your wound has increased redness, your wound has increased drainage and your wound pain has increased Follow-up/Referrals: Anthony Sam MD [Physician] - 11/28/21 2:30 pm PCP,NO [Primary Care Provider] - Diet: Regular Addtl Attending Provider Instructions: Post-Surgical ~Discharge Instructions Activity Recommendations: - lifting limitation: (10 pounds for 4-6 weeks), - exercise/sex/sports limit: (nonstrenuous for 4 weeks), - driving or machine use limit: (none for 1 week or until pain free and no longer taking narcotic pain medication), - Shower/bathe limit: (may shower beginning tonight) Diet: - Resume previous diet SPECIAL CARE INSTRUCTIONS: - May shower tonight. Let water run over area and pat dry. - Surgical delano will need to be removed in 10-14 days. - Call the surgeon's office with any questions or concerns - - (ex. temperature higher than 101 degrees F, excessive bleeding or pain). MEDICATIONS: - Resume previous medications unless instructed otherwise by your surgeon. - May take Tylenol as needed for mild to moderate pain -650 mg Tylenol every 6 hours as needed - Percocet 1 every 6 hours, as needed for moderate to severe pain - Recommend daily stool softener( Colace) while taking narcotic pain medication to prevent constipation or straining. FOLLOW UP VISIT: - If your PCP office will not remove your delano please call office to schedule an in person visit in 10-14 days for staple remove. - I would like to do a telephonic visit with you in 2 weeks if your PCP office will remove the delano so please call the office to schedule a two week telephonic follow-up appointment. Office number Pending Studies at Discharge: No Stand-Alone Forms: My [facility] [employer], [employer], Smoking Cessation Medications and DC Order Prescriptions: New oxycodone-acetaminophen 5-325 mg tablet 1 tab PO Q6H PRN (Reason: pain) Qty: 5 RF: 0 Discharge Orders: Discharge Order (Routine); Ordered 11/13/21 Ordered By: Michelle Osorio Admission Data Admit Date/Time: 11/12/21 19:43 Attending Provider: Anthony Sam Admit Provider: Anthony Sam Primary Care Provider: PCP,NO Other Interventions: Discharge Summary Assessment (RN) Last Done: 11/13/21 15:02
[2021-11-13] MEDS: oxyCODONE/ACETAMINOPHEN 5mg/325mg TAB PO PRN ×2 (15:20→15:23)
== END 2021-11-13 16:15 | disposition home or self-care (01) | DRG 352 ==
LOC: EDBD → ED 12:13 → 3N 18:34 → OR 18:34 → 3N 19:43